=== PATIENT | female | born 2000 | race Hispanic/Latino ===

== ENCOUNTER → 2025-01-07 | Outpatient (CLI) | payer MEDICAID ==
[~2025-01-07] VITALS: Ht 175.3 cm; Wt 81.6 kg
[2025-01-07 15:32] VITALS: BP 106/75; PULSE 97; RESP 16; TEMP 97.5
[2025-01-07 15:34] LABS: IMMATURE GRANULOCYTE ABSOLUTE 0.02 K/uL (0-1); NUCLEATED RED BLOOD CELLS 0.0 % (0.0-0.19); PLATELET COUNT (AUTO) 161 K/uL (130-400); RED BLOOD CELL COUNT(AUTO) 4.61 MIL/uL (4.00-5.50); RED CELL DISTRIBUTION WIDTH 12.6 % (11.0-15.5); WHITE BLOOD COUNT (AUTO) 6.1 K/uL (4.8-10.8)
[2025-01-07 15:46] LABS: INR 1.12 (0.85-1.15)
[2025-01-07 15:48] LABS: ADD UA MICROSCOPIC YES; APPEARANCE,URINE CLOUDY (CLEAR); GLUCOSE, URINE (UA) NEGATIVE (NEGATIVE); LEUKOCYTE ESTERASE ,URINE 250 Leu/uL (NEGATIVE); NITRATE,URINE NEGATIVE (NEGATIVE); OCCULT BLOOD,URINE LARGE (NEGATIVE)
[2025-01-07 16:39] LABS: OTHER CASTS, URINE 1 /LPF (None Seen); SQUAMOUS EPITHELIAL CELL,UR FEW /HPF (0-2); UNCLASSIFIED CRYSTAL 4 /HPF (None Seen); WBC CLUMP RARE /HPF (0-1)
== END | disposition home or self-care (01) ==
LOC: EDSTATUS 14:00 → DAH 14:36
PROVIDERS: ATTEND Student in an Organized Health Care Education/Training Program
DX: Z01.818 Encounter for other preprocedural examination (principal); N60.22 Fibroadenosis of left breast; R59.9 Enlarged lymph nodes, unspecified
CPT/HCPCS: 84703; 85025; 85610; 85730; 87086; 81001; 36415; A6260

== ENCOUNTER 2025-01-27 06:41 | Day surgery (SDC) | payer MEDICAID, SELFPAY ==
[2025-01-21 11:05] VITALS: BP 116/66; PULSE 91; RESP 18; TEMP 97.9
[2025-01-21 11:08] LABS: APPEARANCE,URINE CLOUDY (CLEAR); GLUCOSE, URINE (UA) NEGATIVE (NEGATIVE); LEUKOCYTE ESTERASE ,URINE 500 Leu/uL (NEGATIVE); NITRATE,URINE NEGATIVE (NEGATIVE); OCCULT BLOOD,URINE NEGATIVE (NEGATIVE)
[2025-01-21 11:10] LABS: IMMATURE GRANULOCYTE ABSOLUTE 0.00 K/uL (0-1); NUCLEATED RED BLOOD CELLS 0.0 % (0.0-0.19); PLATELET COUNT (AUTO) 124 K/uL (130-400); RED BLOOD CELL COUNT(AUTO) 4.17 MIL/uL (4.00-5.50); RED CELL DISTRIBUTION WIDTH 13.6 % (11.0-15.5); WHITE BLOOD COUNT (AUTO) 3.7 K/uL (4.8-10.8)
[2025-01-21 11:14] LABS: ADD UA MICROSCOPIC YES
[2025-01-21 11:20] LABS: CREATININE 0.7 mg/dL (0.5-1.0); GLOMERULAR FILTR. RATE CALC 125.0 mL/min (>90); GLUCOSE,RANDOM 79.0 mg/dL (70-105); SODIUM SERUM 138.0 mmol/L (136-145); UREA NITROGEN, BLOOD 9.0 mg/dL (7-18)
[2025-01-21 11:25] LABS: SQUAMOUS EPITHELIAL CELL,UR MANY /HPF (0-2)
[2025-01-21 12:07] LABS: INR 1.12 (0.85-1.15)
--- NOTE | 2025-01-22 10:30 | NUR ---
RE: POTASSIUM REPORTED K 2.8 TO IRISH/DR AGUILAR. PER IRISH, PATIENT WAS INSTRUCTED TO EAT BANANAS AND TOMATOES. RECHECK POTASSIUM ON DOS.
--- NOTE | 2025-01-24 15:00 | NUR ---
RE: LABS REPORTED UA/URINE CX RESULTS TO IRISH. PER IRISH, SHE WILL SHOW RESULTS TO DR AGUILAR.
[2025-01-27] VITALS (16 sets, daily range): BP systolic 107–120; BP diastolic 69–81; PULSE 62–74; RESP 13–18; TEMP 97–97.9
[~2025-01-27] VITALS: Ht 175.3 cm; Wt 80.0 kg
[2025-01-27] MEDS ORDERED: LACTATED RINGERS 1000ML 1,000 ML IV ONE (07:27)
[2025-01-27] MEDS ORDERED: SUGAMMADEX SODIUM 200 MG/2 ML VIAL IV ONE (07:29)
[2025-01-27] MEDS ORDERED: FAMOTIDINE 20MG VIAL IV ONE (07:30)
[2025-01-27] MEDS ORDERED: LIDOCAINE PF 100MG/5ML (2%) SYRINGE 5ML ONE ×2 (07:31→11:01)
[2025-01-27] MEDS ORDERED: GLYCOPYRROLATE 0.2 MG/ML 5 ML VIAL ONE (07:31)
[2025-01-27] MEDS ORDERED: SUCCINYLCHOLINE CHLORIDE 20 MG/ML 10 ML VIAL ONE (07:31)
[2025-01-27] MEDS ORDERED: NEOSTIGMINE METHYLSULFATE 1MG/ML IV ONE (07:32)
[2025-01-27] MEDS ORDERED: MIDAZOLAM HCL 1 MG/ML 2ML VIAL ONE (07:32)
--- NOTE | 2025-01-27 08:45 | NUR ---
U/S GD LT BREAST WIRE LOCALIZATION PROCEDURE PERFORMED BY Darling JONES. PUNCTURE SITE LT BREAST AT 1 O'CLOCK AND PATIENT TOLERATED PROCEDURE WELL. 20G X 7CM WIRE PLACED TO LT BREAST NODULE AND MAMMO IMAGES TAKEN. WIRE PLACEMENT VERIFIED BY MAMMOGRAPHY IMAGES. END OF PROCEDURE AT 0830. WIRE SECURED WITH DRESSING AND NO BLEEDING NOTED. PATIENT TRANSPORTED TO OR HOLDING AREA VIA STRETCHER AT 0845 AND BEDSIDE REPORT GIVEN TO Elías TINOCO RN.
--- NOTE | 2025-01-27 10:53 | HMCIMG ---
US GUIDED BRST LOC/PERC 1ST IR HISTORY: Left axillary tail lesion needle localization TECHNIQUE: Prior studies were reviewed. Informed consent was obtained after explaining the procedure and potential complications to the patient. The patient was placed supine. Timeout performed. The right breast was prepped and draped in a sterile fashion. Local anesthesia applied to the skin and subcutaneous tissues at entry site. Then, 5 cm Kopans needle was advanced through a 2.89 x 0.64 cm cm hypoechoic nodule at left axillary tail. Needle was removed leaving the localizing wire anchored with its tip 3 cm past the nodule. Sterile dressing applied. CC and ML mammograms performed confirmed adequate wire position. Patient tolerated the procedure well and was sent to the OR for excisional biopsy. No complications encountered. IMPRESSION: Ultrasound-guided presurgical localization of left axillary tail breast nodule.
--- NOTE | 2025-01-27 11:40 | OP ---
Operative Note: DATE OF PROCEDURE: 01/27/25 SURGEON: CUCA AGUILAR MD ELECTRIC REFRIGERATOR SERVICER: [] ANESTHESIA: General endotracheal ANESTHESIOLOGIST/TRAVEL CLERK: Fredi ISAAC PREOPERATIVE DIAGNOSIS: Left breast/axillary mass POSTOPERATIVE DIAGNOSIS: Same SYNOPSIS: 24-year-old female with a mass in the left axillary/tail of Anthony a region that is very tender and biopsy showed involuting fibroadenoma. PROCEDURE: Excisional biopsy of left breast/axillary mass ESTIMATED BLOOD LOSS: 3 cc INDICATIONS: As above DESCRIPTION OF PROCEDURE: After patient has been in the radiology suite for needle localization of the left mass. We then proceeded to bring the patient to the operating room placed on the operating table in a supine position. Once g eneral endotracheal anesthesia was achieved patient's bilateral breast area and left axillary and left upper extremity are prepped and draped in sterile fashion. We then used the ultrasound to identify the location of the clips they were at the edge of the pectoralis muscle on the left tail of Anthony. We then proceeded to create a transverse incision over top of the area and dissected through the skin and subcutaneous tissue. I identified a liquified mass and the clip was within this mass. We then proceeded to follow the clip and dissected around it identified a solid mass right behind our localization device and included it in our specimen. We then excised it completely using combination of cautery and harmonic device. We then oriented the specimen with: long black stitch medial, short black stitch lateral, short white stitch cephalad, short white stitch caudal. Sent it off to be seen under mammography and we had good margins. The clip was not present within the specimen because it came out during mobilization of the necrotic lesion. Irrigation is carried out. We then proceeded to close the subcutaneous tissue with running 3-0 Vicryl. Skin was closed with 4-0 Monocryl running subcuticular fashion and Dermabond is applied over top. Patient tolerated the procedure well all counts correct x2 at the end of the procedure We then obtain hemostasis. Jordin the resection site with clips. CUCA AGUILAR MD Jan 27, 2025 11:40
--- NOTE | 2025-01-27 12:45 | NUR ---
RECOVERY POST SURGERY LEFT UPPER ARMPIT AREA DERMABOND TO INCISION. NO ACTIVE BLEEDING OR DRAINAGE NOTED. NO REDNESS OR SWELLING NOTED. DERMABOND DRY AND INTACT.
--- NOTE | 2025-01-28 10:35 | HMCIMG ---
SPECIMEN RADIOGRAPH: Two intraoperative specimen radiographs were performed and submitted for interpretation. The specimen contains the Kopans wire and the mass.
--- NOTE | 2025-01-28 11:25 | HMCIMG ---
DIGITAL left breast DIAGNOSTIC MAMMOGRAM postneedle localization Technique: The digital mammographic examination of left in craniocaudal, mediolateral oblique views along with CAD was obtained. History: This is a 24 years year-old female post needle localization Reference:None available. Breast composition: Breast composition C: The breasts are heterogeneously dense, which may obscure small masses. Finding: The digital mammographic examination of left breast in craniocaudal and mediolateral oblique view along with CAD demonstrates posterior localization demonstrate a Kopan wire circling the biopsy site with a biopsy marker.. Patient was then transferred to the OR suite. IMPRESSION: Needle localization in satisfactory position and patient was transferred to our.. FINAL ASSESSMENT: Post-procedure Mammogram for wire Placement. NOTE: IF A WORK-UP OF THIS PATIENT LEADS TO A BIOPSY, PLEASE FORWARD A COPY OF THE PATHOLOGY REPORT TO OUR OFFICE REQUIRED BY [facility] FEBRUARY 19, 1994. A NEGATIVE MAMMOGRAM SHOULD NOT PRECLUDE BIOPSY OF A CLINICALLY PALPABLE SUSPICIOUS MASS, 10% OF BREAST CANCERS ARE MAMMOGRAPHICALLY OCCULT. THIS MAMMOGRAPHY FACILITY IS FULLY ACCREDITED BY THE [employer] (FDA). THANK YOU FOR THIS REFERRAL.
== END 2025-01-27 13:38 | disposition home or self-care (01) ==
LOC: DAH 06:41
PROVIDERS: ATTEND Student in an Organized Health Care Education/Training Program
DX: N63.20 Unspecified lump in the left breast, unspecified quadrant (principal); N60.22 Fibroadenosis of left breast; Z79.01 Long term (current) use of anticoagulants; Z79.899 Other long term (current) drug therapy
CPT/HCPCS: 80048; 84703; 85025; 85610; 85730; 87086 ×2; 87186; 81001; 36415 ×2; 19125; 77065; 84132; 81025; 88305; 76098; 19285; 88312; A6260; A4663; J7120; J1308; J3010 ×2; J1100; J0330; J0665 ×2; J3490 ×3; J2003 ×2; J2250; J2405; J2710; J0690 ×2; A4649 ×2; A4930 ×2; A4213; A4222; A4221; A4216; A4223 ×2; A4600; J2704

== ENCOUNTER 2025-02-10 15:29 | Emergency (ER) | payer SELFPAY ==
[~2025-02-10] VITALS: Ht 175.3 cm; Wt 76.2 kg
--- NOTE | 2025-02-10 16:08 | ERN ---
ED Note History of Present Illness Stated Complaint: LEFT BREAST D/C. S/P BIOPSY Chief Complaint: Post-Op Problem Time Seen by MD: 15:35 Dictation: PATIENT IS A 24-YEAR-OLD FEMALE COMING IN TODAY WITH FOLLOWING UP ON A BIOPSY DONE TO HER LEFT BREAST BY DR. CUCA AGUILAR 01/27/2025. HE STATES HE WENT TO OUTPATIENT SURGERY TODAY AND WAS TOLD TO COME TO THE EMERGENCY ROOM FOR FURTHER EVALUATION AND TREATMENT. SHE DENIES ANY FEVER CHILLS NAUSEA VOMITING MINIMAL PAIN AT THE SITE. SHE STATES SHE IS NOT FOLLOW BACK UP WITH THE SURGEON SINCE THE BREAST BIOPSY. Allergies: Coded Allergies: No Known Drug Allergies (Unverified Allergy, Unknown, 01/07/25) Home Meds No Active Prescriptions or Reported Meds Past Medical History Past Medical History: No Pertinent History Surgical History: Other Surgical History Other: OVARIAN CYST, LT BREAST BX LMP: Feb 08, 2025 RN Note Reviewed/Agreed w/PFSH: Yes Review of System Dictation CONSTITUTIONAL: NEGATIVE EXCEPT FOR HPI HEAD/FACE: NEGATIVE EXCEPT FOR HPI EENT: NEGATIVE EXCEPT FOR HPI RESPIRATORY: NEGATIVE EXCEPT FOR HPI LEFT BREAST BIOPSY WITH PAIN GASTROINTESTINAL/ABDOMINAL: NEGATIVE EXCEPT FOR HPI GENITOURINARY: NEGATIVE EXCEPT FOR HPI MUSCULOSKELETAL: NEGATIVE EXCEPT FOR HPI INTEGUMENTARY: NEGATIVE EXCEPT FOR HPI NEUROLOGICAL/PSYCH: NEGATIVE EXCEPT FOR HPI HEMATOLOGIC/LYMPHATIC: NEGATIVE EXCEPT FOR HPI ALL SYSTEMS NEGATIVE, EXCEPT NOTED ABOVE. 13 POINT REVIEW OF SYSTEMS ASSESSED AND ALL NEGATIVE EXCEPT FOR ABOVE. Initial Vital Sign VS Vital Signs Date Time Temp Pulse Resp B/P (MAP) Pulse Ox O2 Delivery O2 Flow Rate FiO2 02/10/25 15:32 98.4 86 16 112/72 99 Room Air 0 02/10/25 17:36 21 Physical Exam Dictation VITAL SIGNS REVIEWED GENERAL APPEARANCE: ALERT, ORIENTED X 3, NO ACUTE DISTRESS, WELL DEVELOPED, NOURISHED. NO PAIN HEAD AND FACE: NON-TRAUMATIC. EYES: PERRL, PINK CONJUNCTIVAS, EYELID NO TRAUMA, ANTERIOR CHAMBER WITH ARCUS SENILIS. EARS: PINNAS INTACT AND NO SIGNS OF TRAUMA OR ERYTHEMA EAR CANALS CLEAR AND NO DISCHARGE TM NO ERYTHEMA NOSE: NO DISCHARGE, NO BLEEDING. OROPHARYNX: MOUTH NORMAL, TONGUE PINK, PHARYNX CLEAR,NO ERYTHEMA, TONSILS NO EXUDATES, NO ABSCESSES NOTED, MUCOUS MEMBRANE MOIST NECK: SUPPLE, NON-TENDER, NO THYROMEGALY, NO MASSES, NO JVD, NO BRUITS BREAST:DEFERRED CHEST:NO TENDERNESS, NO CREPITUS, NO PARADOXICAL MOVEMENT, NO RETRACTIONS LUNGS:CLEAR, WELL-VENTILATED, SYMMETRIC, NO RALES, NO WHEEZING, NO RHONCHI, NO STRIDOR, GOOD BREATH SOUNDS BILATERALLY HEART: REGULAR RATE, REGULAR RHYTHM, NO MURMUR, NO GALLOPS VASCULAR: NO PERIPHERAL EDEMA, ABDOMEN: SOFT, POSITIVE BOWEL SOUNDS, NONDISTENDED, NO GUARDING, NONTENDER, NO REBOUND, NO MASSES NO HEPATOMEGALY, NO SPLENOMEGALY, NO MCCARTHY'S SIGN, NO HERNIAS. RECTAL: DEFERRED GENITAL: DEFERRED NEUROLOGICAL: NORMAL SPEECH, MOTOR FUNCTION INTACT, SENSORY FUNCTION INTACT MUSCULOSKELETAL: NECK NONTENDER, FULL RANGE OF MOTION, BACK NONTENDER, FULL RANGE OF MOTION, EXTREMITIES: NONTENDER, FULL RANGE OF MOTION SKIN: COLOR PINK, DRY, NO TURGOR, NO RASH, NO LACERATIONS, NO ABRASIONS, NO C ONTUSIONS. LYMPHATIC: DEFERRED Results (Laboratory/Radiology) Laboratory/Radiology Laboratory Tests Test 02/10/25 16:53 White Blood Count 5.1 K/uL (4.8-10.8) Red Blood Count 4.16 MIL/uL (4.00-5.50) Hemoglobin 12.8 g/dL (12.0-16.0) Hematocrit 38.3 % (36-48) Mean Corpuscular Volume 92.1 fL (79-99) Mean Corpuscular Hemoglobin 30.8 pg (27.0-33.0) Mean Corpuscular Hemoglobin Concent 33.4 g/dL (32.0-36.0) Red Cell Distribution Width 14.3 % (11.0-15.5) Platelet Count 177 K/uL (130-400) Mean Platelet Volume 12.0 fL (7.5-10.5) H Immature Granulocyte % (Auto) 0.2 % (0-1) Neutrophils (%) (Auto) 48.9 % (40.0-77.0) Lymphocytes (%) (Auto) 40.3 % (21.0-51.0) Monocytes (%) (Auto) 8.2 % (3.0-13.0) Eosinophils (%) (Auto) 1.2 % (0.0-8.0) Basophils (%) (Auto) 1.2 % (0.0-5.0) Neutrophils # (Auto) 2.5 K/uL (1.8-7.7) Lymphocytes # (Auto) 2.1 K/uL (1.0-4.8) Monocytes # (Auto) 0.4 K/uL (0.1-1.0) Eosinophils # (Auto) 0.06 K/uL (0.00-0.70) Basophils # (Auto) 0.06 K/uL (0.00-0.20) Absolute Immature Granulocyte (auto 0.01 K/uL (0-1) Nucleated Red Blood Cells 0.0 % (0.0-0.19) Sodium Level 138 mmol/L (136-145) Potassium Level 3.4 mmol/L (3.5-5.1) L Chloride Level 104 mmol/L (101-111) Carbon Dioxide Level 26 mmol/L (21-32) Blood Urea Nitrogen 6 mg/dL (7-18) L Creatinine 0.6 mg/dL (0.5-1.0) Glomerular Filtration Rate Calc 129 mL/min (>90) Random Glucose 79 mg/dL (70-105) Lactic Acid Level 1.2 mmol/L (0.8-2.5) Total Calcium 8.8 mg/dL (8.5-10.1) Labs Reviewed?: Yes ED Course ED Course Orders Procedure Category Date Status Time Blood Cult LINDA 02/10/25 In Process 16:05 Lactic Acid LAB 02/10/25 Complete 16:05 Cbc With Differential LAB 02/10/25 Complete 16:05 Basic Metabolic Panel LAB 02/10/25 Complete 16:05 Vital Signs Date Time Temp Pulse Resp B/P (MAP) Pulse Ox O2 Delivery O2 Flow Rate FiO2 02/10/25 17:36 98.2 84 16 114/86 98 Room Air* 0 21 02/10/25 15:32 98.4 86 16 112/72 99 Room Air 0 1855/SPOKE WITH DR. PILLAI, SURGEON WHO PERFORMED THE BIOPSY. SHE REVIEWED LABS AND SAID OKAY TO DISCHARGE PATIENT HOME AND FOLLOW UP IN HER OFFICE IN THE NEXT TWO DAYS, CALL FOR AN APPOINTMENT TOMORROW. Medical Decision Making MDM MEDICAL DECISION-MAKING BASED ON BASIC LABS AND CONSULTING SURGEON WHO PERFORMED BIOPSY. LABS ARE UNREMARKABLE PATIENT DISCHARGED HOME TO CONTINUE ALL TREATMENTS AND INSTRUCTIONS FROM , CALL HER OFFICE THIS WEEK FOR AN APPOINTMENT AND FOLLOW UP DX & DISP Disposition: Discharge Departure Impression: Primary Impression: Status post left breast biopsy Condition: Stable Scripts No Active Prescriptions or Reported Meds Additional Instructions: FOLLOW-UP WITH PRIMARY CARE PROVIDER IN 1 TO 2 DAYS. TAKE MEDICATIONS DI RECTED HERE IN THE EMERGENCY ROOM. OKAY TO CONTINUE HOME MEDICATIONS UNLESS OTHERWISE DISCUSSED DURING YOUR VISIT IN THE EMERGENCY ROOM TODAY. RETURN TO YOUR NEAREST EMERGENCY ROOM IF SYMPTOMS WORSEN OR IF THERE IS NO IMPROVEMENT. CALL 911 IF YOU NEED IMMEDIATE ASSISTANCE. TAKE TYLENOL OR MOTRIN [id number] NEEDED AND IF NO CONTRAINDICATIONS ARE PRESENT. INCREASE ORAL HYDRATION. A WOUND CULTURE OR URINE CULTURE WAS ORDERED HERE IN THE EMERGENCY ROOM DEPARTMENT PLEASE FOLLOW-UP WITH PRIMARY CARE PROVIDER AND ADVISE THEM TO GET REPEAT PORTS FROM OUR FACILITY. IF YOU HAD ANY [place] WRAP/SPLINTS THAT WERE APPLIED HERE, PLEASE DO NOT REMOVE THEM UNTIL YOU SEE YOUR PRIMARY CARE OR SPECIALTY. CONTINUE ALL MEDICATIONS AND TREATMENTS FROM YOUR BIOPSY ON 01/27. CALL FOR AN APPOINTMENT AND FOLLOW UP IN HER OFFICE TOMORROW Referrals: CUCA AGUILAR MD (PCP) Time of Disposition: 18:57 I have reviewed the case, and I agree with, Diagnosis and Plan SUGEY MAXWELL NP Feb 10, 2025 16:07 HOLDEN MELENDEZ DO Feb 10, 2025 19:02
[2025-02-10 17:01] LABS: IMMATURE GRANULOCYTE ABSOLUTE 0.01 K/uL (0-1); NUCLEATED RED BLOOD CELLS 0.0 % (0.0-0.19); PLATELET COUNT (AUTO) 177 K/uL (130-400); RED BLOOD CELL COUNT(AUTO) 4.16 MIL/uL (4.00-5.50); RED CELL DISTRIBUTION WIDTH 14.3 % (11.0-15.5); WHITE BLOOD COUNT (AUTO) 5.1 K/uL (4.8-10.8)
[2025-02-10 17:21] LABS: CREATININE 0.6 mg/dL (0.5-1.0); GLOMERULAR FILTR. RATE CALC 129.0 mL/min (>90); GLUCOSE,RANDOM 79.0 mg/dL (70-105); SODIUM SERUM 138.0 mmol/L (136-145); UREA NITROGEN, BLOOD 6.0 mg/dL (7-18)
[2025-02-10 19:07] VITALS: BP 114/84; PULSE 82; RESP 16; TEMP 98.3; O2SAT 98
== END 2025-02-10 19:12 | disposition home or self-care (01) ==
LOC: EDH 15:29
DX: Z48.817 Encounter for surgical aftercare following surgery on the skin and subcutaneous tissue (principal); Z98.890 Other specified postprocedural states
CPT/HCPCS: 36415; 80048; 83605; 85025; 87040; 99283